=== PATIENT | male | born 1970 | race Caucasian/White ===

== ENCOUNTER 2018-07-07 18:07 | Emergency (ER) | payer BC ==
[~2018-07-07] VITALS: Ht 177.8 cm; Wt 88.5 kg
--- NOTE | 2018-07-07 18:25 | NUR ---
Urine sent to [id number]
[2018-07-07 18:39] LABS: BASOPHILS # (AUTO) 0.1 K/uL (0.0-8.0); EOSINOPHILS # (AUTO) 0.1 K/uL (0.0-0.7); EOSINOPHILS % (AUTO) 0.6 % (0.0-7.0); HEMATOCRIT 42.2 % (36.7-47.1); HEMOGLOBIN 15.1 g/dL (12.5-16.3); LYMPHOCYTES # (AUTO) 2.2 K/uL (20.0-40.0); LYMPHOCYTES % (AUTO) 20.4 % (20.5-51.5); MEAN CORPUSCULAR HGB CONC 36 g/dL (32.5-36.3); MONOCYTES # (AUTO) 0.9 K/uL (2.0-10.0); MONOCYTES % (AUTO) 8.7 % (0.0-11.0); NEUTROPHILS # (AUTO) 7.4 K/uL (1.8-8.9); NEUTROPHILS % (AUTO) 69.3 % (38.5-71.5); PLATELET COUNT (AUTO) 175 K/uL (152-348); RED BLOOD CELL COUNT(AUTO) 4.44 MIL/uL (4.06-5.63); WHITE BLOOD COUNT (AUTO) 10.7 K/uL (3.6-10.2)
[2018-07-07 18:41] LABS: *BLOOD, URINE NEGATIVE (NEGATIVE); *CLARITY,URINE SLIGHTLY CLOUDY (CLEAR); *COLOR,URINE Orange (YELLOW); *KETONES,URINE 1+ (NEGATIVE); *PROTEIN,URINE 3+ (NEGATIVE); *UROBILINOGEN,URINE >=8.0 E.U./dl (NORMAL); LEUKOCYTE ESTERASE ,URINE 3+ (NEGATIVE); NITRITE, URINE POSITIVE (NEGATIVE); UGLUCOSE 1+ (NEGATIVE)
[2018-07-07 18:42] LABS: *BILIRUBIN,URIN 2+ (NEGATIVE)
[2018-07-07 18:47] LABS: CREATININE 1.2 mg/dL (0.6-1.3); POTASSIUM 3.7 mmol/L (3.5-5.1)
--- NOTE | 2018-07-07 18:48 | NUR ---
Dr Skinner at the bedside for MSE.
[2018-07-07 18:52] LABS: BACTERIA,URINE FEW /HPF (NONE SEEN); SQUAMOUS EPITHELIAL CELL,UR NONE SEEN /HPF (NONE SEEN)
--- NOTE | 2018-07-07 18:57 | NUR ---
Shift report given to Uvaldo CORTÉS.
--- NOTE | 2018-07-07 19:00 | NUR ---
Assumed care of pt at this time. Pt is currently in room resting in bed, awake, alert, oriented. ER MD at bedside.
[2018-07-07] MEDS ORDERED: LEVOFLOXACIN 750 MG/D5W 150 ML PIGGYBACK IV ONE (19:15)
--- NOTE | 2018-07-07 19:20 | NUR ---
Pt went down to radiology dept for CT scan.
[2018-07-07 19:21] LABS: BILIRUBIN,DIRECT 0.1 mg/dL (0.0-0.2); BILIRUBIN,TOTAL 0.6 mg/dL (0.2-1.0); TOTAL PROTEIN, SERUM 8.6 g/dL (6.4-8.2)
--- NOTE | 2018-07-07 19:33 | NUR ---
Pt back from radiology dept. NAD noted.
[2018-07-07] MEDS ORDERED: LEVOFLOXACIN 750MG/D5W 150 ML IV ONE (19:37)
--- NOTE | 2018-07-07 19:51 | NUR ---
Dr. Skinner at bedside for update
[2018-07-07] MEDS ORDERED: METRONIDAZOLE 500 MG/NS 100 ML PIGGYBACK IV ONE (20:00)
[2018-07-07] MEDS ORDERED: IV NORMAL SALINE 1000 ML BAG IV ONE (20:00)
[2018-07-07] MEDS ORDERED: NORMAL SALINE FLUSH 10 ML DISP.SYRIN ONE (20:28)
[2018-07-07] MEDS ORDERED: SWABABLE VALVE TRANSFER SET EA MC ONE (20:28)
[2018-07-07] MEDS ORDERED: IV NORMAL SALINE 250 ML IV ONE (20:29)
[2018-07-07] MEDS ORDERED: IOHEXOL 300MG/ML 100 ML INFUS..BTL ONE (20:29)
--- NOTE | 2018-07-07 20:43 | NUR ---
Pt went down to radiology dept for CT scan w/contrast accompanied by forest ranger technician & family member. Consent for IV contrast signed.
--- NOTE | 2018-07-07 21:06 | NUR ---
IV was accidentally removed. Catheter intact and site benign. Pressure and 4x4 gauze applied to site. No bleeding noted. aware.
[2018-07-07] MEDS ORDERED: METRONIDAZOLE 500 MG TABLET ONE (21:19)
--- NOTE | 2018-07-07 21:19 | NUR ---
Pt states he wants to be discharged home. Dr. Skinner at bedside.
[2018-07-07] MEDS ORDERED: METRONIDAZOLE 500 MG TABLET PO ONE (21:30)
--- NOTE | 2018-07-07 21:33 | NUR ---
Patient discharged to home in stable conditon. Written and verbal after care instructions given. Patient verbalizes understanding of instructions.
[2018-07-07 21:38] VITALS: BP 149/94
== END 2018-07-07 21:40 | disposition home or self-care (01) ==
LOC: ER 18:12
DX: K57.32 Diverticulitis of large intestine without perforation or abscess without bleeding (principal); N39.0 Urinary tract infection, site not specified; N28.89 Other specified disorders of kidney and ureter
CPT/HCPCS: 36415; 74176; 80048; 80076; 81001; 85025; 87086; 96365; 99284; J1956; A4663; J3490; J7030; J7050; Q9967